=== PATIENT | female | born 1950 | race Two or more races ===

== ENCOUNTER 2020-12-19 23:01 | Emergency (ER) | payer OTHER ==
[~2020-12-19] VITALS: Ht 154.9 cm; Wt 58.1 kg
--- NOTE | 2020-12-19 23:14 | NUR ---
Dr Vieira at bedside for evaluation.
[2020-12-19] MEDS ORDERED: HYDROcodone/APAP 5/325 TABLET ONE (23:21)
--- NOTE | 2020-12-19 23:27 | NUR ---
To xray, will medicate with norco upon return.
[2020-12-19] MEDS ORDERED: HYDROcodone/APAP 5/325 TABLET PO PRN (23:30)
--- NOTE | 2020-12-19 23:40 | NUR ---
Back from xray, medicated per order. Call travis in reach. AIDET provided. Family at [facility].
[2020-12-20 00:35] VITALS: BP 117/49
--- NOTE | 2020-12-20 00:35 | NUR ---
Pt reports feeling "much much better" since pain med, 0/*10 pain now. VSS. AIDET provided. Waiting for CT results.
--- NOTE | 2020-12-20 01:08 | NUR ---
Opiate agreement statement signed by pt. Detailed info re: opiates provided to pt and family.
== END 2020-12-20 01:12 | disposition home or self-care (01) ==
LOC: ED 12-20 00:51
DX: S73.112A Iliofemoral ligament sprain of left hip, initial encounter (principal); I10 Essential (primary) hypertension; X58.XXXA Exposure to other specified factors, initial encounter; Y93.89 Activity, other specified; Y92.89 Other specified places as the place of occurrence of the external cause; Y99.8 Other external cause status
CPT/HCPCS: 72192; 99284